=== PATIENT | female | born 1935 | race Caucasian/White ===

== ENCOUNTER → 2016-07-18 | Outpatient (CLI) | payer MEDICARE ==
[~2016-07-18] MED LIST: ACCOLATE20 MG PO; AMBIEN10 M1 PO; ARGINAID POWDE1 EACH PO; ASPIR-TRIN325 MG PO; ASPIRIN325 MG PO; CLEOCIN PH600 MG/50 IV; DOXYCYCLINE HY100 M5 PO; DUONEB 3 MG/3 ML3 M1 INH; FLONASE ALLERG9.9 ML NS; Flovent 220 M220 MCG INH; HYDROCODONE BIT1 T11 PO; JANUVIA25 MG PO; LIPITOR10 MG PO; LUMIGAN50 DRP OPH; Lopressor25 MG PO; NEXIUM40 MG PO; NORVASC5 MG PO; ONE-TABLET-DAI1 EACH PO; POTASSIUM CHLO20 ME3 PO; PROBIOTIC250 MG PO; PROMOD 946 ML946 ML PO; PROVENTIL0.09 MG/A1 INH; TESSALON PERLE100 MG PO; VITAMIN D1000 IU PO; Zofran4 MG PO
== END | disposition home or self-care (01) ==
LOC: MAMMO 10:37
DX: N63 Unspecified lump in breast (principal); R92.8 Other abnormal and inconclusive findings on diagnostic imaging of breast; M85.88 Other specified disorders of bone density and structure, other site; Z78.0 Asymptomatic menopausal state

== ENCOUNTER → 2017-01-27 | Outpatient (CLI) | payer MEDICARE | END | disposition home or self-care (01) | LOC: LAB 12:29 | DX: H34.10 Central retinal artery occlusion, unspecified eye (principal) ==

== ENCOUNTER → 2017-02-04 | Outpatient (CLI) | payer MEDICARE | END | disposition home or self-care (01) | LOC: MRI 07:53 | DX: I67.82 Cerebral ischemia (principal); J32.4 Chronic pansinusitis; H53.002 Unspecified amblyopia, left eye; I10 Essential (primary) hypertension ==

== ENCOUNTER → 2018-01-02 | Outpatient (CLI) | payer MEDICARE | END | disposition home or self-care (01) | LOC: CARD 04:31 | DX: I08.1 Rheumatic disorders of both mitral and tricuspid valves (principal); R06.02 Shortness of breath ==

== ENCOUNTER 2018-11-08 20:53 | Emergency (ER) | payer MEDICARE ==
[~2018-11-08] VITALS: Ht 180.3 cm; Wt 96.6 kg
[2018-11-08 20:56] VITALS: BP 191/84
[2018-11-08] MEDS ORDERED: KEFLEX500 M1 PO (22:10)
== END 2018-11-08 22:41 | disposition home or self-care (01) ==
LOC: ED 20:53
DX: S61.412A Laceration without foreign body of left hand, initial encounter (principal); G62.9 Polyneuropathy, unspecified; M86.9 Osteomyelitis, unspecified; Z91.041 Radiographic dye allergy status; Z79.82 Long term (current) use of aspirin; Z79.899 Other long term (current) drug therapy; Z90.710 Acquired absence of both cervix and uterus; Z90.49 Acquired absence of other specified parts of digestive tract; W23.0XXA Caught, crushed, jammed, or pinched between moving objects, initial encounter; Y93.89 Activity, other specified; Y92.89 Other specified places as the place of occurrence of the external cause; Y99.8 Other external cause status

== ENCOUNTER 2019-04-15 13:25 | Inpatient (IN) | payer MEDICARE ==
[~2019-04-15] VITALS: Ht 180.3 cm; Wt 102.6 kg
[~2019-04-15 13:25] MED LIST changes: +KEFLEX500 M1 PO
[2019-04-15] MEDS ORDERED: ASPIRIN CHEWABL81 MG PO (15:18)
--- NOTE | 2019-04-15 15:31 | NUR ---
[facility] 83, admitted to , under the services of PITO Yoder MD with a diagnosis of DVT. Chief complaint is DENIES C/O AT PRESENT. Patient [place] from [place]. Monitor applied. Initial assessment completed. Vital signs taken and recorded. PITO YODER MD notified of admission to the unit. Orders received. See assessment for past medical history, medications and allergies. Patient and/or family oriented to unit. [facility] reviewed. Clothing/patient valuable form completed. ZAIN FIELD
[2019-04-15 15:35] LABS: HEMATOCRIT 42.8 % (37.0-47.0); HEMOGLOBIN 13.9 g/dl (12.0-16.0); MEAN CELL VOLUME 96.4 fl (81.0-99.0); MEAN CORPUSCULAR HGB 31.3 pg (27.0-31.0); MEAN CORPUSCULAR HGB CONC 32.5 g/dl (33.0-37.0); MEAN PLATELET VOLUME 10.2 fl (9.6-12.3); PLATELET COUNT AUTOMATED 310 10*3/uL (130-400); RED BLOOD COUNT 4.44 10*6/uL (4.10-5.10); RED CELL DISTRI WIDTH 14.3 % (0-14.5); WHITE BLOOD COUNT 15.5 10*3/uL (4.8-10.8)
[2019-04-15 15:51] LABS: CREATININE 1.55 mg/dL (0.55-1.02); POTASSIUM 4.2 mmol/L (3.5-5.1); THYROXINE (T4) TOTAL 11.3 ug/dl (4.8-13.9); TOTAL PROTEIN 7.3 gm/dL (6.4-8.2)
[2019-04-15 15:57] LABS: THYROID STIM HORMONE (HS) 2.7 uIU/ml (0.358-4.75)
[2019-04-15 15:59] VITALS: BP 169/74
[2019-04-15 16:09] LABS: BASOPHILS 1 % (0-1); PLATELET SUFFICIENCY NORMAL (NORMAL); TOTAL CELLS COUNTED 100 #CELLS
[2019-04-15 16:10] LABS: VITAMIN D, 25-HYDROXY 49.8 ng/mL (30-100)
[2019-04-15 20:00] VITALS: BP 136/69
[2019-04-16] VITALS: BP 134/91
--- NOTE | 2019-04-16 02:18 | NUR ---
26 HR chart check completed.
[2019-04-16 06:38] LABS: HEMATOCRIT 40.8 % (37.0-47.0); HEMOGLOBIN 13.4 g/dl (12.0-16.0); MEAN CELL VOLUME 93.6 fl (81.0-99.0); MEAN CORPUSCULAR HGB 30.7 pg (27.0-31.0); MEAN CORPUSCULAR HGB CONC 32.8 g/dl (33.0-37.0); PLATELET COUNT AUTOMATED 296 10*3/uL (130-400); RED BLOOD COUNT 4.36 10*6/uL (4.10-5.10); WHITE BLOOD COUNT 11.4 10*3/uL (4.8-10.8)
[2019-04-16 06:58] LABS: ALBUMIN 2.6 gm/dl (3.1-4.5); CREATININE 1.33 mg/dL (0.55-1.02); POTASSIUM 3.8 mmol/L (3.5-5.1); TOTAL PROTEIN 6.6 gm/dL (6.4-8.2)
[2019-04-16 07:16] LABS: BASOPHILS 2 % (0-1); TOTAL CELLS COUNTED 100 #CELLS
[2019-04-16 07:17] LABS: PLATELET SUFFICIENCY NORMAL (NORMAL)
[2019-04-16 07:17] LABS: ACT PARTIAL THROMBO TIME 32.8 SECONDS (20.0-32.1)
--- NOTE | 2019-04-16 08:00 | NUR ---
TOOK OVER CARE OF PT. PT RESTING IN BED. NO S/S OF DISTRESS NOTED. NO COMPLAINTS ARE VOICED. RESPIRATIONS ULABORED ON ROOM AIR. TEDS IN PLACE. SAFETY MEASURES IN PLACE. CALL LIGHT IN REACH.
--- NOTE | 2019-04-16 08:12 | NUR ---
NOTIFIED DR. ALFONSO THAT PATIENT HAS BEEN AFIB ON THE MONITOR. DR. ALFONSO STATED THAT SHE DOES NOT HAVE A HISTORY OR AFIB, BUT THAT SHE WILL BE GOING ON [place] FOR HER BLOOD CLOT
[2019-04-16 08:13] LABS: VITAMIN D, 25-HYDROXY 53.6 ng/mL (30-100)
[2019-04-16] MEDS ORDERED: XARE15TA PO (08:23)
--- NOTE | 2019-04-16 09:00 | NUR ---
[employer]ze Cutter Helper in to talk to patient. Patient states lives at home with . There are few steps in the home. Physician: michael [facility]acy: [facility] Home health services: none Patient's level of ADLs: INDEPENDENT Patient has working utilities: all working DME: none Follow-up physician's appointment after d/c: patient chooses to make her own appointment Does patient want to access PORTAL?: no Discharge plan discussed with patient, present, she states she lives at home with , she is independent in adls and ambulation, she states she will be returning home when medically stable and denies any home needs, was in agreement with this, case management will follow for any needs. MACI NGUYEN
[2019-04-16 09:01] VITALS: BP 138/70
--- NOTE | 2019-04-16 11:15 | NUR ---
Discharge instructions reviewed with patient/family. Patient receptive and verbalizes understanding. Follow-up care arranged. Written instructions given to patient/family. MASON BENNETT
== END 2019-04-16 11:15 | disposition home or self-care (01) | DRG 301 ==
LOC: LAB 13:25 → US 13:30 → 4E 14:56
PROVIDERS: ADMIT Internal Medicine
DX: I82.441 Acute embolism and thrombosis of right tibial vein (principal); I48.91 Unspecified atrial fibrillation; J45.20 Mild intermittent asthma, uncomplicated; E11.40 Type 2 diabetes mellitus with diabetic neuropathy, unspecified; E11.22 Type 2 diabetes mellitus with diabetic chronic kidney disease; I12.9 Hypertensive chronic kidney disease with stage 1 through stage 4 chronic kidney disease, or unspecified chronic kidney disease; N18.3 Chronic kidney disease, stage 3 (moderate); Z79.01 Long term (current) use of anticoagulants; Z79.899 Other long term (current) drug therapy; Z79.82 Long term (current) use of aspirin

== ENCOUNTER → 2019-12-21 | Outpatient (CLI) | payer MEDICARE ==
[~2019-12-21] MED LIST changes: +ASPIRIN CHEWABL81 MG PO; +XARE15TA PO
== END | disposition home or self-care (01) ==
LOC: US 00:21
DX: I65.23 Occlusion and stenosis of bilateral carotid arteries (principal); E04.1 Nontoxic single thyroid nodule

== ENCOUNTER → 2019-12-25 | Outpatient (CLI) | payer MEDICARE | END | disposition home or self-care (01) | LOC: US 00:33 | PROVIDERS: ATTEND Internal Medicine | DX: E04.1 Nontoxic single thyroid nodule (principal) ==

== ENCOUNTER → 2020-01-05 | Outpatient (CLI) | payer MEDICARE | END | disposition home or self-care (01) | LOC: RAD 14:59 | PROVIDERS: ATTEND Orthopaedic Surgery | DX: M19.071 Primary osteoarthritis, right ankle and foot (principal); I70.201 Unspecified atherosclerosis of native arteries of extremities, right leg; R22.41 Localized swelling, mass and lump, right lower limb ==

== ENCOUNTER → 2020-01-15 | Outpatient (CLI) | payer MEDICARE | END | disposition home or self-care (01) | LOC: CT 00:55 | PROVIDERS: ATTEND Orthopaedic Surgery | DX: S92.901A Unspecified fracture of right foot, initial encounter for closed fracture (principal); M21.41 Flat foot [pes planus] (acquired), right foot; R60.0 Localized edema; M14.60 Charcot's joint, unspecified site; M85.871 Other specified disorders of bone density and structure, right ankle and foot; M20.11 Hallux valgus (acquired), right foot; M19.071 Primary osteoarthritis, right ankle and foot; M76.61 Achilles tendinitis, right leg; M77.9 Enthesopathy, unspecified; M76.71 Peroneal tendinitis, right leg; M89.8X7 Other specified disorders of bone, ankle and foot; X58.XXXA Exposure to other specified factors, initial encounter; Y93.89 Activity, other specified; Y92.89 Other specified places as the place of occurrence of the external cause; Y99.8 Other external cause status ==

== ENCOUNTER → 2020-06-28 | Outpatient (CLI) | payer MEDICARE ==
[~2020-06-28] MED LIST changes: +AMLODIPINE BESYL5 MG PO; +COZAAR25 M1 PO; +LASIX20 MG PO; +LEVOFLOXACIN500 MG PO; +PREDNISONE5 MG PO; +SYNTHROID25 MCG PO
== END | disposition home or self-care (01) ==
LOC: RAD 01:30
PROVIDERS: ATTEND Internal Medicine Pulmonary Disease
DX: J90 Pleural effusion, not elsewhere classified (principal); J98.11 Atelectasis

== ENCOUNTER 2020-07-28 03:32 | Inpatient (IN) | payer MEDICARE ==
[~2020-07-28] VITALS: Ht 180.3 cm; Wt 110.3 kg
[2020-07-28] VITALS (7 sets, daily range): BP systolic 122–169; BP diastolic 50–86
[~2020-07-28 03:32] MED LIST changes: -AMLODIPINE BESYL5 MG PO; -COZAAR25 M1 PO; -LASIX20 MG PO; -LEVOFLOXACIN500 MG PO; -PREDNISONE5 MG PO; -SYNTHROID25 MCG PO
[2020-07-28 04:13] LABS: BASO # 0.1 10*3/uL (0.0-0.1); BASO % 0.5 % (0.0-1.0); EOS # 0.1 10*3/uL (0.0-0.4); EOS % 0.6 % (1.0-4.0); HEMATOCRIT 36.9 % (37.0-47.0); LYMPH % 8.9 % (27.0-41.0); MEAN CELL VOLUME 94.1 fl (81.0-99.0); MEAN CORPUSCULAR HGB 29.6 pg (27.0-31.0); MEAN CORPUSCULAR HGB CONC 31.4 g/dl (33.0-37.0); MEAN PLATELET VOLUME 9.8 fl (9.6-12.3); MONO # 1.1 10*3/uL (0.1-1.0); MONO % 9.1 % (3.0-9.0); NEUT # 9.3 10*3/uL (2.3-7.9); NEUT % 79.4 % (47.0-73.0); PLATELET COUNT AUTOMATED 251 10*3/uL (130-400); RED BLOOD COUNT 3.92 10*6/uL (4.10-5.10); RED CELL DISTRI WIDTH 17.1 % (0-14.5); WHITE BLOOD COUNT 11.7 10*3/uL (4.8-10.8)
[2020-07-28 04:30] LABS: ALBUMIN 3.2 gm/dl (3.1-4.5); CREATININE 1.36 mg/dL (0.55-1.02); POTASSIUM 4.3 mmol/L (3.5-5.1); TOTAL PROTEIN 7.3 gm/dL (6.4-8.2)
[2020-07-28] MEDS ORDERED: SYNTHROID25 MCG PO (08:56)
[2020-07-28] MEDS ORDERED: AMLODIPINE BESYL5 MG PO (09:00)
[2020-07-28] MEDS ORDERED: COZAAR25 M1 PO (09:01)
[2020-07-28] MEDS ORDERED: LASIX20 MG PO (09:01)
[2020-07-29] VITALS: BP 136/56
[2020-07-29 06:38] LABS: BASO % 0.1 % (0.0-1.0); HEMATOCRIT 34.7 % (37.0-47.0); LYMPH # 0.6 10*3/uL (1.3-4.4); LYMPH % 5.9 % (27.0-41.0); MEAN CORPUSCULAR HGB 29.8 pg (27.0-31.0); MEAN PLATELET VOLUME 10.5 fl (9.6-12.3); MONO # 0.4 10*3/uL (0.1-1.0); MONO % 4.2 % (3.0-9.0); NEUT # 8.9 10*3/uL (2.3-7.9); PLATELET COUNT AUTOMATED 252 10*3/uL (130-400); RED BLOOD COUNT 3.73 10*6/uL (4.10-5.10); RED CELL DISTRI WIDTH 17.1 % (0-14.5)
[2020-07-29 06:55] LABS: CREATININE 1.69 mg/dL (0.55-1.02); POTASSIUM 4.8 mmol/L (3.5-5.1)
[2020-07-29 08:00] VITALS: BP 133/58
[2020-07-29 12:00] VITALS: BP 116/56
[2020-07-29 16:00] VITALS: BP 131/56
[2020-07-29 20:00] VITALS: BP 113/71
[2020-07-30] VITALS: BP 142/88
[2020-07-30 08:00] VITALS: BP 127/58
[2020-07-30 12:00] VITALS: BP 124/55
[2020-07-30 16:00] VITALS: BP 120/44
[2020-07-30 20:00] VITALS: BP 112/49
[2020-07-31] VITALS: BP 137/59
[2020-07-31] MEDS ORDERED: PREDNISONE5 MG PO (07:04)
[2020-07-31] MEDS ORDERED: LEVOFLOXACIN500 MG PO (07:04)
[2020-07-31 08:00] VITALS: BP 126/68
[2020-08-01 14:07] LABS: MYCOPLASMA PNEUMONIAE IGG <100 U/mL (0-99); MYCOPLASMA PNEUMONIAE IGM <770 U/mL (0-769)
== END 2020-07-31 11:33 | disposition home or self-care (01) | DRG 177 ==
LOC: ED 03:32 → EDHOLD 07:14 → 4E 07:14
PROVIDERS: Emergency Medicine; ADMIT Internal Medicine; ATTEND Internal Medicine
DX: J15.1 Pneumonia due to Pseudomonas (principal); J96.01 Acute respiratory failure with hypoxia; I48.21 Permanent atrial fibrillation; J44.1 Chronic obstructive pulmonary disease with (acute) exacerbation; J44.0 Chronic obstructive pulmonary disease with (acute) lower respiratory infection; J45.21 Mild intermittent asthma with (acute) exacerbation; J15.211 Pneumonia due to Methicillin susceptible Staphylococcus aureus; N18.31 Chronic kidney disease, stage 3a; E11.610 Type 2 diabetes mellitus with diabetic neuropathic arthropathy; E11.40 Type 2 diabetes mellitus with diabetic neuropathy, unspecified; Z66 Do not resuscitate; Z51.5 Encounter for palliative care; I89.0 Lymphedema, not elsewhere classified; E11.22 Type 2 diabetes mellitus with diabetic chronic kidney disease; Z96.651 Presence of right artificial knee joint; I12.9 Hypertensive chronic kidney disease with stage 1 through stage 4 chronic kidney disease, or unspecified chronic kidney disease; Z79.4 Long term (current) use of insulin; Z88.5 Allergy status to narcotic agent; Z91.041 Radiographic dye allergy status; Z90.49 Acquired absence of other specified parts of digestive tract; Z90.710 Acquired absence of both cervix and uterus; Z82.49 Family history of ischemic heart disease and other diseases of the circulatory system; Z79.01 Long term (current) use of anticoagulants

== ENCOUNTER → 2020-08-26 | Outpatient (CLI) | payer MEDICARE ==
[~2020-08-26] MED LIST changes: +AMLODIPINE BESYL5 MG PO; +COZAAR25 M1 PO; +LASIX20 MG PO; +LEVOFLOXACIN500 MG PO; +PREDNISONE5 MG PO; +SYNTHROID25 MCG PO
== END | disposition home or self-care (01) ==
LOC: CT 02:37 → CARD 10:30
PROVIDERS: ATTEND Internal Medicine Interventional Cardiology
DX: I08.8 Other rheumatic multiple valve diseases (principal); J98.11 Atelectasis; J90 Pleural effusion, not elsewhere classified; I25.10 Atherosclerotic heart disease of native coronary artery without angina pectoris; R91.8 Other nonspecific abnormal finding of lung field; I48.91 Unspecified atrial fibrillation; I11.9 Hypertensive heart disease without heart failure; I27.20 Pulmonary hypertension, unspecified

== ENCOUNTER → 2020-11-08 | Outpatient (CLI) | payer MEDICARE | END | disposition home or self-care (01) | LOC: RAD 00:34 | PROVIDERS: ATTEND Nurse Practitioner Acute Care | DX: J44.9 Chronic obstructive pulmonary disease, unspecified (principal); J84.10 Pulmonary fibrosis, unspecified ==

== ENCOUNTER → 2020-12-08 | Outpatient (CLI) | payer MEDICARE | END | disposition home or self-care (01) | LOC: RAD 00:14 | PROVIDERS: ATTEND Internal Medicine | DX: M85.89 Other specified disorders of bone density and structure, multiple sites (principal); Z72.0 Tobacco use ==

== ENCOUNTER → 2022-05-14 | Outpatient (CLI) | payer MEDICARE ==
[~2022-05-14] MED LIST changes: +AMLODIPINE BESY10 MG PO; +HYDRALAZINE HYD50 MG PO; +LOPRESSOR25 MG PO; +LOSARTAN POTASS50 M1 PO; +Ondansetron8 MG PO
== END | disposition home or self-care (01) ==
LOC: MRI 01:32
PROVIDERS: ATTEND Orthopaedic Surgery
DX: I08.0 Rheumatic disorders of both mitral and aortic valves (principal)

== ENCOUNTER → 2023-02-18 | Outpatient (CLI) | payer MEDICARE ==
[2023-02-18 13:10] LABS: BASO # 0.1 10*3/uL (0.0-0.1); BASO % 1.2 % (0.0-1.0); EOS # 0.2 10*3/uL (0.0-0.4); EOS % 1.8 % (1.0-4.0); HEMATOCRIT 44.6 % (37.0-47.0); LYMPH # 1.8 10*3/uL (1.3-4.4); LYMPH % 17.6 % (27.0-41.0); MEAN CELL VOLUME 98.9 fl (81.0-99.0); MEAN CORPUSCULAR HGB 31.9 pg (27.0-31.0); MEAN CORPUSCULAR HGB CONC 32.3 g/dl (33.0-37.0); MEAN PLATELET VOLUME 10.1 fl (9.6-12.3); MONO # 0.8 10*3/uL (0.1-1.0); MONO % 7.4 % (3.0-9.0); NEUT # 7.4 10*3/uL (2.3-7.9); NEUT % 71.2 % (47.0-73.0); PLATELET COUNT AUTOMATED 265 10*3/uL (130-400); RED BLOOD COUNT 4.51 10*6/uL (4.10-5.10); WHITE BLOOD COUNT 10.4 10*3/uL (4.8-10.8)
[2023-02-18 13:41] LABS: FREE T4 1.19 ng/dl (0.89-1.76); POTASSIUM 3.7 mmol/L (3.4-5.1); TOTAL PROTEIN 7.4 gm/dL (6.0-8.0)
[2023-02-18 13:42] LABS: VITAMIN D, 25-HYDROXY 63.1 ng/mL (30-100)
== END | disposition home or self-care (01) ==
LOC: LAB 00:59 → CARD 11:30 → LAB 11:30
PROVIDERS: ATTEND Internal Medicine
DX: I08.3 Combined rheumatic disorders of mitral, aortic and tricuspid valves (principal); E11.9 Type 2 diabetes mellitus without complications; I11.9 Hypertensive heart disease without heart failure; D51.9 Vitamin B12 deficiency anemia, unspecified; N18.31 Chronic kidney disease, stage 3a; E78.2 Mixed hyperlipidemia; Z13.0 Encounter for screening for diseases of the blood and blood-forming organs and certain disorders involving the immune mechanism; Z13.1 Encounter for screening for diabetes mellitus; Z13.21 Encounter for screening for nutritional disorder; Z13.220 Encounter for screening for lipoid disorders; Z13.228 Encounter for screening for other metabolic disorders; Z13.29 Encounter for screening for other suspected endocrine disorder; Z13.6 Encounter for screening for cardiovascular disorders; Z13.89 Encounter for screening for other disorder; Z13.9 Encounter for screening, unspecified

== ENCOUNTER → 2024-02-13 | Outpatient (CLI) | payer MEDICARE | END | disposition home or self-care (01) | LOC: CARD 00:05 | PROVIDERS: ATTEND Internal Medicine Interventional Cardiology | DX: I08.3 Combined rheumatic disorders of mitral, aortic and tricuspid valves (principal); I11.0 Hypertensive heart disease with heart failure; I50.33 Acute on chronic diastolic (congestive) heart failure; I48.19 Other persistent atrial fibrillation; Z79.01 Long term (current) use of anticoagulants ==

== ENCOUNTER 2024-11-27 05:11 | Inpatient (IN) | payer MEDICARE ==
[~2024-11-27] VITALS: Ht 180.3 cm; Wt 76.2 kg
[2024-11-27 05:20] VITALS: BP 145/60
[2024-11-27] MEDS ORDERED: diazePAM 5 MG TAB PO ONE (05:20)
[2024-11-27] MEDS ORDERED: SODIUM CHLORIDE 0.9% 500 ML IV ONE (05:20)
[2024-11-27] MEDS ORDERED: Ondansetron Hydrochloride 4 MG/2 ML VIAL IV ONE (05:20)
[2024-11-27] MEDS ORDERED: Dexamethasone Sodium Phospha 20 MG/5 ML VIAL IV ONE (05:20)
[2024-11-27 05:52] LABS: MEAN CELL VOLUME 98.2 fl (81.0-99.0); MEAN CORPUSCULAR HGB 31.0 pg (27.0-31.0); MEAN PLATELET VOLUME 9.9 fl (9.6-12.3); NUCLEATED RED BLOOD CELL 0.0 % (0.0-0.0); NUCLEATED RED BLOOD CELL 0.0 10*3/uL (0.0-0.0); PLATELET COUNT AUTOMATED 212 10*3/uL (130-400); RED CELL DISTRI WIDTH 14.0 % (0-14.5)
[2024-11-27 06:05] LABS: BUN 36.0 mg/dl (9-23)
[2024-11-27 06:09] LABS: MANUAL DIFF REFLEX YES
[2024-11-27 06:33] LABS: PLATELET SUFFICIENCY NORMAL (NORMAL)
[2024-11-27] MEDS ORDERED: Acetaminophen/Oxycodone 5 MG/325 MG TABLET PO ONE (08:20)
[2024-11-27 11:06] LABS: BILIRUBIN Negative (Negative); BLOOD Negative (Negative); CLARITY Clear (Clear); COLOR Dark Yellow (Yellow); KETONE Trace (Negative); LEUKO ESTERASE Trace (Negative); NITRITE Negative (Negative); PH 5.0 (4.5-8.0); SPECIFIC GRAVITY 1.020 (1.001-1.030); UROBILINOGEN 1.0 E.U./dl (0.0-1.0)
[2024-11-27] MEDS ORDERED: LATANOPROST2.5 ML OP (11:13)
[2024-11-27 11:16] VITALS: BP 134/48
[2024-11-27 11:29] LABS: BACTERIA 2+; RBC 0-2 rbc/hpf (0-2)
[2024-11-27] MEDS ORDERED: TEZSPIRE SQ (12:02)
[2024-11-27 12:24] VITALS: BP 128/65
[2024-11-27] MEDS ORDERED: Albuterol Sulf/Ipratropium 3 ML VIAL NEB SCH (12:25)
[2024-11-27] MEDS ORDERED: HYDROmorphONE Hydrochloride 0.5 MG/0.5 ML SYRINGE IV PRN (12:25)
[2024-11-27 20:00] VITALS: BP 117/56
[2024-11-27] MEDS ORDERED: LATANOPROST 0.005% 2.5 ML BOTTLE OPH SCH (21:00)
[2024-11-27] MEDS ORDERED: ZOLPIDEM TARTRATE 10 MG TAB PO SCH (22:00)
[2024-11-27 23:50] VITALS: BP 157/66
[2024-11-28 08:00] VITALS: BP 147/66
[2024-11-28] MEDS ORDERED: FLUTICASONE PROPIONATE Nasal 16 Gm spray NAS SCH (10:00)
[2024-11-28] MEDS ORDERED: Vitamin D 1,000 IU TAB (25 MCG) PO SCH (10:00)
[2024-11-28] MEDS ORDERED: MULTIVITAMIN 1 TAB TAB PO SCH (10:00)
[2024-11-28] MEDS ORDERED: RIVAROXABAN 15 MG TAB PO SCH (10:00)
[2024-11-28 16:00] VITALS: BP 115/45
[2024-11-28 19:58] VITALS: BP 119/51
[2024-11-28] MEDS ORDERED: GABAPENTIN 300 MG CAP PO SCH (22:00)
[2024-11-29 07:14] VITALS: BP 145/67
[2024-11-29] MEDS ORDERED: HYDROmorphONE Hydrochloride 0.5 MG/0.5 ML SYRINGE IV PRN ×2 (08:18→12:50)
[2024-11-29] MEDS ORDERED: Albuterol Sulf/Ipratropium 3 ML VIAL NEB PRN (08:25)
[2024-11-29] MEDS ORDERED: ATORVASTATIN CALCIUM 10 MG TAB PO SCH (10:00)
[2024-11-29] MEDS ORDERED: Ciprofloxacin Hydrochloride 500 MG TAB PO SCH (10:00)
[2024-11-29] MEDS ORDERED: GABAPENTIN 300 MG CAP PO SCH (10:00)
[2024-11-29 12:00] VITALS: BP 157/64
[2024-11-29] MEDS ORDERED: Acetaminophen/Hydrocodone ES 7.5/325 tablet PO PRN (12:45)
[2024-11-29 20:00] VITALS: BP 138/44
[2024-11-30] VITALS: BP 147/66
[2024-11-30 08:00] VITALS: BP 164/69
[2024-11-30] MEDS ORDERED: METHOCARBAMOL 750 MG TAB PO SCH (10:00)
[2024-11-30 16:00] VITALS: BP 97/79
[2024-11-30 20:00] VITALS: BP 139/50
[2024-12-01 08:00] VITALS: BP 146/74
[2024-12-01 12:00] VITALS: BP 162/61
[2024-12-01 16:00] VITALS: BP 145/53
[2024-12-01 20:00] VITALS: BP 150/57
[2024-12-02] VITALS: BP 156/65
[2024-12-02 08:00] VITALS: BP 139/52
[2024-12-02] MEDS ORDERED: Ipratropium Brom3 ML NEB (08:35)
[2024-12-02] MEDS ORDERED: CIPROFLOXACIN500 M4 PO (08:35)
[2024-12-02] MEDS ORDERED: METHOCARBAMOL750 M1 PO (08:35)
[2024-12-02] MEDS ORDERED: ZOLPIDEM10 MG PO (08:36)
[2024-12-02] MEDS ORDERED: CEFUROXIME AXE500 MG PO (08:36)
[2024-12-02] MEDS ORDERED: HYDROCODONE-AC1 EAC2 PO (08:36)
[2024-12-02] MEDS ORDERED: NEURONTIN300 MG PO ×2 (08:36→08:41)
[2024-12-02 08:52] LABS: MANUAL DIFF REFLEX YES; MEAN CELL VOLUME 96.9 fl (81.0-99.0); MEAN CORPUSCULAR HGB 31.6 pg (27.0-31.0); MEAN PLATELET VOLUME 10.0 fl (9.6-12.3); NUCLEATED RED BLOOD CELL 0.0 % (0.0-0.0); NUCLEATED RED BLOOD CELL 0.0 10*3/uL (0.0-0.0); PLATELET COUNT AUTOMATED 221 10*3/uL (130-400); RED CELL DISTRI WIDTH 13.9 % (0-14.5)
[2024-12-02 09:05] LABS: PLATELET SUFFICIENCY NORMAL (NORMAL)
[2024-12-02 09:21] LABS: BUN 46.0 mg/dl (9-23)
[2024-12-02 12:00] VITALS: BP 128/55
[2024-12-02] MEDS ORDERED: FOAM BANDAGE 5X5 T ONE (14:53)
[2024-12-02] MEDS ORDERED: LEPTOSPERMUM HONEY 0.5 OZ TUBE T ONE (14:56)
== END 2024-12-02 16:44 | DRG 551 ==
LOC: ED 05:11 → ICCU 10:29 → 4E 10:29 → EDHOLD 10:29 → ICCU 10:45 → 4E 18:36
PROVIDERS: Emergency Medicine; ADMIT Internal Medicine; ATTEND Internal Medicine
DX: M48.061 Spinal stenosis, lumbar region without neurogenic claudication (principal); L89.613 Pressure ulcer of right heel, stage 3; I48.21 Permanent atrial fibrillation; N39.0 Urinary tract infection, site not specified; N18.4 Chronic kidney disease, stage 4 (severe); Z66 Do not resuscitate; E11.22 Type 2 diabetes mellitus with diabetic chronic kidney disease; S90.811A Abrasion, right foot, initial encounter; J45.40 Moderate persistent asthma, uncomplicated; I12.9 Hypertensive chronic kidney disease with stage 1 through stage 4 chronic kidney disease, or unspecified chronic kidney disease; E03.9 Hypothyroidism, unspecified; G89.29 Other chronic pain; B96.20 Unspecified Escherichia coli [E. coli] as the cause of diseases classified elsewhere; F51.01 Primary insomnia; E11.42 Type 2 diabetes mellitus with diabetic polyneuropathy; M54.16 Radiculopathy, lumbar region; R62.7 Adult failure to thrive; B95.2 Enterococcus as the cause of diseases classified elsewhere; Z88.8 Allergy status to other drugs, medicaments and biological substances; Z79.4 Long term (current) use of insulin; Z68.23 Body mass index [BMI] 23.0-23.9, adult; Z91.81 History of falling; Y93.89 Activity, other specified; Y92.89 Other specified places as the place of occurrence of the external cause; Y99.8 Other external cause status